=== PATIENT | male | born 1960 | race American Indian/Alaskan Native ===

== ENCOUNTER 2019-01-13 10:21 | Outpatient (CLI) | payer MEDICAID | END 2019-01-13 10:22 | disposition home or self-care (01) | LOC: C.PAT 10:21 | DX: R97.20 Elevated prostate specific antigen [PSA] (principal) ==

== ENCOUNTER 2019-01-18 12:10 | Day surgery (SDC) | payer MEDICAID ==
[2019-01-18 12:36] VITALS: BMI 19.9
[2019-01-18] MEDS ORDERED: Midazolam 2 MG/2 ML VIAL ONE (15:30)
[2019-01-18] MEDS ORDERED: Propofol 10 mg/ml Inj (20 ML) ONE (15:31)
[2019-01-18] MEDS ORDERED: Lidocaine Hydrochloride 5 ML INJ ONE (15:34)
[2019-01-18] MEDS ORDERED: cefTRIAXone 1 gm 1 GM/100 ML BAG IVPB ONE (15:43)
[2019-01-18] MEDS ORDERED: Lidocaine 2% Jelly (Uro-Jet) ONE (15:44)
[2019-01-18] MEDS ORDERED: HYDROmorphone 0.5 mg/0.5 ml ISec IVP PRN (16:00)
[2019-01-18] MEDS ORDERED: Oxycodone/Acetaminophen 5/325 mg Tab PO PRN (16:04)
[2019-01-18] MEDS ORDERED: Ciprofloxacin 400mg/200ml D5W 400 MG/200 ML BAG IVPB STA (16:05)
[2019-01-18] MEDS ORDERED: Gentamicin 80 mg in 0.9% NS 80 MG/100 ML BAG IVPB ONE (16:26)
[2019-01-18 17:26] VITALS: RESP 18
[2019-01-18 17:55] VITALS: BP 129/74; PULSE 83; TEMP 97.8; O2SAT 99
--- NOTE | 2019-01-19 03:25 | OP ---
PROCEDURE DATE: 01/18/2019 PREOPERATIVE DIAGNOSES: Elevated prostate-specific antigen, voiding dysfunction, irritative and obstructive urinary complaints, decreased force of steam, and nocturia. POSTOPERATIVE DIAGNOSES: Elevated prostate-specific antigen, voiding dysfunction, irritative and obstructive urinary complaints, decreased force of steam, and nocturia. PROCEDURE: Ultrasound of the prostate and ultrasound-guided prostate biopsy. SURGEON: Rafita Back MD COMPLICATIONS: There were no complications. SPECIMEN SENT DOWN: Prostate cores, a total of 12 cores. INDICATIONS: See the history and physical for further details. This is a very pleasant gentleman with elevated PSA. We discussed options and is here for the above procedure. Because of irritative and obstructive urinary complaints, we will be ruling out malignancy. UROLOGY OPERATIVE FINDINGS: There were no specific hypoechoic lesions. No specific abnormalities were detected. Random biopsies were taken. We sent down a total of 12 cores. There were no complications. Possibility of finding prostatitis. Risks and benefits were discussed at length. DESCRIPTION OF PROCEDURE: After obtaining informed consent, the patient was placed on the table. The PSA is from my office is 23. We discussed options, risks, benefits, and alternatives. The patient was placed on the table in a decubitus position. A probe was inserted via the rectum. We took pictures in transverse and longitudinal views. Prostate volume measures to be above 30 mL. There were some prostatic calcifications. No specific hypoechoic lesions. We began random biopsies of left base, left mid, left apex, right base, right mid, right apex, lateral medial, lateral medial, lateral medial. A total of 12 cores were sent down. Post-biopsy rectal exam is within normal limits. The patient tolerated the procedure well without complications. Rafita Back MD
--- NOTE | 2019-01-19 04:07 | HP ---
He is here today for an elevated PSA workup. REASON FOR WORKUP: The patient with irritative and obstructive voiding complaints, decreased flow of stream, nocturia, and somewhat sounds to have an elevated PSA and then we discussed the options and apparently, repeat PSA has also been elevated and then he came in for a prostate ultrasound and biopsy today. He has irritative and obstructive complaints of decreased flow of stream, nocturia. No gross hematuria currently. PAST MEDICAL AND SURGICAL HISTORY: As listed on the chart. No history of an HI or CVA. MEDICATIONS: He is on multiple medications. See the chart. In fact, he is on Pletal which he stopped now for about five days. He is on aspirin which he is still taking. He is on other medications. See the list on the chart. REVIEW OF SYSTEMS: As listed above, noncontributory. No weight loss, chest pain, or shortness of breath. SOCIAL HISTORY: Essentially unremarkable. PHYSICAL EXAMINATION: GENERAL: A well-nourished male in no apparent distress. VITAL SIGNS: Within normal limits. ABDOMEN: Overall soft and nontender. No flank mass appreciated. GENITOURINARY: Normal male phallus without discharge. No testicular masses. RECTAL: A 30 g prostate, soft and smooth. No specific nodules. DIAGNOSES: Elevated prostate-specific antigen, voiding dysfunction, irritative and obstructive urinary complaints. PLAN: As follows: Very pleasant gentleman with the above history. We discussed options, risks, benefits and alternatives. We are going to plan for an ultrasound of prostate and ultrasound-guided prostate biopsy and then further plans will follow. Risks and benefits discussed at length. We will plan to proceed. Rafita Back MD
== END 2019-01-18 18:00 | disposition home or self-care (01) ==
LOC: C.SDS 12:10
PROVIDERS: ATTEND Urology
DX: N40.1 Benign prostatic hyperplasia with lower urinary tract symptoms (principal); N13.8 Other obstructive and reflux uropathy; R97.20 Elevated prostate specific antigen [PSA]; R35.1 Nocturia; R39.12 Poor urinary stream; Z79.82 Long term (current) use of aspirin; E11.9 Type 2 diabetes mellitus without complications
CPT/HCPCS: 55700; 82948; 88305; 88342; J0696; J0744; J1580